=== PATIENT | male | born 1960 | race Caucasian/White ===

== ENCOUNTER 2018-05-11 16:25 | Emergency (ER) | payer OTHER, SELFPAY ==
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
[2018-05-11 16:37] VITALS: BP 178/70; PULSE 94; RESP 20; TEMP 36.4; O2SAT 97
[2018-05-11] MEDS: KETOROLAC 60 MG/2 ML VIAL IM (16:41)
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
--- NOTE | 2018-05-11 17:36 | PC.NURSE ---
Pt was incontinent of urine, this is new since the injury.
--- NOTE | 2018-05-11 17:42 | DI.RAD.S_ITS ---
PROCEDURE: XR CHEST 1V INDICATIONS: chest pain, left side TECHNIQUE: One view of the chest was acquired. COMPARISON: [facility], CR, XR CHEST 2 VIEWS, 04/13/2018, 7:57. FINDINGS: Surgical changes and devices: None. Lungs and pleura: Lungs are clear. No pleural effusions or pneumothorax. Mediastinum: Mediastinal contours appear normal. Heart size is normal. Bones and chest wall: No suspicious bony lesions. Overlying soft tissues appear unremarkable. IMPRESSION: No acute pulmonary process. Dictated by: Chastity Morales M.D. on 05/11/2018 at 18:19 Approved by: Chastity Morales M.D. on 05/11/2018 at 18:20
[2018-05-11] MEDS: diazePAM 5 MG TABLET PO (17:59)
[2018-05-11] MEDS: HYDROMORPHONE 1 MG INJ SUBCUT (19:33)
--- NOTE | 2018-05-11 19:39 | PC.NURSE ---
I agree with all assessments and treatments completed by the student nurse.
[2018-05-11 20:03] VITALS: BP 157/82; PULSE 86; RESP 18; O2SAT 96
== END 2018-05-11 20:05 | disposition home or self-care (01) ==
PROVIDERS: Emergency Provider Emergency Medicine; PCP Family Medicine
DX: S13.4XXA Sprain of ligaments of cervical spine, initial encounter (principal); V49.40XA Driver injured in collision with unspecified motor vehicles in traffic accident, initial encounter
CPT/HCPCS: 71045; 72125; 72131; 96372; 99282; 99284; J1170; J1885

== ENCOUNTER 2019-02-12 12:57 | Day surgery (SDC) | payer MEDICARE, SELFPAY ==
[2019-02-07 11:38] VITALS: BMI 46.5
[2019-02-12] VITALS (15 sets, daily range): BP systolic 133–183; BP diastolic 67–107; PULSE 69–99; RESP 14–20; TEMP 36–36.8; O2SAT 89–97; BMI 46.4
--- NOTE | 2019-02-12 | DI.RAD.S_ITS ---
PROCEDURE: XR CERVICAL SPINE 2V OR 3V INDICATIONS: C5-6 ACDF AND DISCECTOMY TECHNIQUE: 2 view(s) of the cervical spine were acquired. COMPARISON: None. FINDINGS: Bones: No fractures or dislocations to the T1 level. The lateral masses of C1 appear intact on the odontoid view. No suspicious bony lesions. Stable prior fusion plate C6-C7. No operative intervention C5-C6. Soft tissues: No prevertebral soft tissue swelling. IMPRESSION: Stable positioning of a anterior fusion plate from prior cervical fusion surgery C6-C7, a new small metallic structure is seen in the expected region of C5-6 on the frontal view postoperatively. Dictated by: Arsenio Sandoval M.D. on 02/13/2019 at 16:53 Approved by: Arsenio Sandoval M.D. on 02/13/2019 at 16:54
--- NOTE | 2019-02-12 15:20 | PM.PREOP ---
Pre-operative Note Interval Note History & Physical reviewed/Exam performed by Physician: Yes Changes to H&P: No
[2019-02-12] MEDS: LACTATED RINGERS 1,000 ML 42 ML IV (15:51)
[2019-02-12] MEDS: CEFAZOLIN 2 GM/100 ML FROZ.PIGGY IV (16:00)
[2019-02-12] MEDS: CEFAZOLIN 1 GM/50 ML FROZ.PIGGY IV (16:10)
--- NOTE | 2019-02-12 16:34 | SUR.OPER ---
Supine on padded OR bed, head on gel donut, towel between shoulder blades, arms padded and tucked at side, legs uncrossed, safety belt at thigh, tape over blanket over lower legs .
[2019-02-12] MEDS: THROMBIN (RECOMBINANT) 5,000 UNIT VIAL 5000 UNIT TOP (16:39)
[2019-02-12] MEDS: BUPIVACAINE 0.25% W/ EPI 30 ML VIAL INJ (16:40)
[2019-02-12] MEDS: SODIUM CHLORIDE 0.9% 1,000 ML, GENTAMICIN 80 MG IRR (16:40)
--- NOTE | 2019-02-12 17:27 | P.OP_ITS ---
Operative Date/Time/Diagnoses Date of procedure: 02/12/19 Time of procedure: 17:27 Pre-op diagnosis: Cervical disc herniation with radiculopathy History of cervical fusion Morbid obesity BMI 46 Post-op diagnosis: same Procedure & Clinicians Procedure: C5-6 anterior cervical diskectomy and fusion Use of cage Use of microscope Iliac crest bone graft aspirate Same procedure as scheduled: Yes Indications: [age] year old male with intractable pain from cervical radiculopathy from a disc herniation. They had failed conservative management and requested operative intervention. Risks and benefits of surgery were discussed and appropriate consents were obtained. Surgeon: Hany Angel Bacteriologist Pharmaceutical: Tierney Cruz Anesthesia Type: General Operative Notes Findings: None Closure Type: primary Specimen(s): none sent Prosthetic devices, grafts, tissues, transplants, or devices: Lilian SHELBY-C Estimated Blood Loss (mL): 5 Blood products transfused: none Procedure in detail: Patient was brought to the operating room and intubated on the table. A time-out was performed. Preoperative antibiotics were given. The neck was prepped and draped in the standard sterile fashion. Using his previous incision, we made a 3 cm oblique incision on the left side. We used Bovie to go through the platysma and then did a standard anterolateral blunt dissection down to the precervical fascia. This was quite difficult due to the previous scar tissue from his last surgery as well as the depth that we had approach through his very deep thick neck from his morbid obesity. Fascia was nicked and elevated up. We exposed the top of his C6-7 plate and used that as our localization for the next disc at C5-6 as we could barely visualize our levels on the lateral view due to his size. We then subperiosteally elevated up the longus colli muscles. Self-retaining retractors were placed. [place] pins were placed. We then brought in the microscope. A scalpel used to perform an annulotomy. We then used a combination of pituitaries and curettes and Kerrison to perform a complete anterior diskectomy at C5-6. We used the bur to take down the posterior osteophytes. We took down the PLL and used Kerrison to remove any posterior disc material and osteophytes. At the end we could from the nerve hook cephalad caudally and out the foramen and everything was opened. A small stab incision was made over the left anterior iliac crest. A Jamshidi needle was advanced down the pedicle and 2 mL of bone marrow was aspirated. We then used the trials. We then packed a 17 x 14 x7 mm SHELBY-C cage with Primagen bone graft and the iliac crest harvest. The cage was placed under fluoroscopic guidance. We then placed our two locking plates. The self- retaining retractors and [place] pins were removed and final x-rays taken. The wound was irrigated. There was no bleeding. The carotid was beating nicely. The platysma was closed. The superficial was closed. The skin was closed. A sterile dressing was placed. They were then extubated and brought to recovery room with no complications. Complications: none Post-operative Condition: stable Disposition: PACU Plan for aftercare: Inpatient overnight. Discharge in the morning.
[2019-02-12] MEDS: hydrOXYzine pamoate 25 MG CAPSULE PO (17:58)
[2019-02-12] MEDS: HYDROMORPHONE 2 MG INJ IV ×4 (17:59→18:17)
[2019-02-12] MEDS: ONDANSETRON 4 MG/2 ML INJ IV ×2 (18:03→22:24)
[2019-02-12] MEDS: LORazepam 2 MG/ML INJ 0.25 MG IV (18:15)
[2019-02-12] MEDS: LACTATED RINGERS 1,000 ML 125 ML IV (19:30)
--- NOTE | 2019-02-12 19:36 | PC.NURSE ---
Addendum entered by Vonnie Rob R.N. 02/12/19 23:37: Since last note patient is more awake, reporting pain to neck and back. Medicated with Dilaudid for pain. Complaining of not able to get comfortable in bed. Pt transferred to recliner, staff then changed out his bed to 's newer Purvi bed. Patient requesting to sit up in recliner for a while, shortly after that he fell asleep. Chair alarm placed, at his side. Patient woke saying feeling bad, belched a couple of times but had no emesis. We transferred back to bed, 2-3 max assist for safety as patient very pale & slow to mobilize. Refused for me to administer his 2100 medications saying he was nauseated, asking for food and seltzer. He also said he was having a difficult time swallowing & reports sore throat, reporting ice chips and sips of water helping. When he tried to eat yogurt, he said that he felt like small bits of fruit stuck in throat, but then not sure thinking maybe it was because his throat was sore. No drooling or cough. Patient in no distress. He is able to clear throat on his own, sipping on water intermittently. I gave Galilea NORTON RN report, she is aware of pt's reported swallowing problems, aware that he should not have anything but water tonight, until ST can see him in the morning. Original Note: Post-op note: Giovanny brought from PACU to 212 via hospital bed. Very drowsy, dozing intermittently. When wakes he startles, reaching out for bed rails, saying he is having a hard time breathing. Having periods of apnea, this nurse wondering if the apnea is waking him up. Respirations 12-14/minute, other VS stable. 2L O2 sat 92-98%, once dropped to 90% while dozing. Anterior middle left neck with gauze drsg covered by tegaderm, all CDI. Giovanny appears very anxious to me, giving him ice chips repeatedly, he intermittently tries to clear throat &/or cough and then moans in pain. I asked him to wait til more awake to take more ice chips at this time. still giving him ice chips, I stated a second time that we may want to pause with any oral intake at this point. very attentive to patient, interactive with care. IV to left wrist flushing with no difficulty, LR infusing at 125 ml/hour.
[2019-02-12] MEDS: DEXAMETHASONE 4 MG/ML VIAL IV (19:53)
[2019-02-12] MEDS: HYDROMORPHONE 0.5 MG INJ IV (20:00)
[2019-02-12] MEDS: OXYCODONE IR 5 MG TABLET 10 MG PO (22:17)
[2019-02-13] MEDS: HYDROMORPHONE 0.5 MG INJ IV (00:23)
[2019-02-13] MEDS: DEXAMETHASONE 4 MG/ML VIAL IV ×2 (00:28→06:03)
[2019-02-13] MEDS: CEFAZOLIN 2 GM/100 ML FROZ.PIGGY IV ×2 (00:29→09:11)
[2019-02-13] MEDS: INSULIN NPH 100 UNIT/ML VIAL 70 UNIT SUBCUT ×2 (00:37→09:15)
[2019-02-13] MEDS: INSULIN REGULAR 100 UNIT/ML 3 ML VIAL 50 UNIT SUBCUT ×2 (00:46→09:13)
[2019-02-13] MEDS: OXYCODONE IR 5 MG TABLET 10 MG PO ×3 (00:55→09:12)
[2019-02-13] MEDS: LACTATED RINGERS 1,000 ML 125 ML IV (04:06)
[2019-02-13 06:25] VITALS: BP 162/88; PULSE 87; RESP 16; TEMP 36.8; O2SAT 98
--- NOTE | 2019-02-13 06:41 | PC.NURSE ---
Patient was on 3 liters O2 at 97% at the start of shift from post op. In early AM patient was taken off O2, sat's are still 97% on Room air. Patient has had some pain control issues 10/27. Oxycodone 10mg given Q3. Dressing on neck is clean/dry/intact. Lung sounds are clear, VSS. Patient has expressed concerns about swallowing certain foods. He has continued to try different textures of foods with success. Patient is on Tele: NS. Patient was up to bedside this night w/o any complications. IS has been encouraged, SCD's are on. Bed is in low and locked position and call light is within reach.
--- NOTE | 2019-02-13 06:57 | PM.PNPO.1 ---
Subjective Subjective Date Patient Seen: 02/13/19 Time Patient Seen: 06:57 Interval history: He is doing well. Pain is 6/10, under control with medication. Arms feel fine, all lower neck pain. He has been eating yogurt and drinking without problems. He has been up and feels ready to go. Exam Vital Signs (past 8 hours): - 02/12/19 23:00 02/13/19 06:25 Temperature 98.2 F 98.3 F Pulse Rate 89 87 Respiratory Rate 18 16 Blood Pressure 167/99 H 162/88 H Pulse Oximetry 97 98 Oxygen Delivery Method Nasal Cannula Oxygen Flow Rate 2 Const Orientation: alert and oriented x3 Back/Spine/Pelvis Other: CDI. 5/5 motor both upper extremities. Assessment & Plan Post-op Postoperative Procedures: Procedures Operation Date: 02/12/19 15:15 Actual Procedures Side Surgeon p C56 anterior cervical discectomy & fusion Hany Angel MD he is doing well. Discharge home today.
[2019-02-13] MEDS: POTASSIUM CHLORIDE 10 MEQ TAB PO (09:11)
[2019-02-13] MEDS: METFORMIN HCL 500 MG TABLET 1000 MG PO (09:11)
[2019-02-13] MEDS: DOCUSATE 100 MG CAPSULE PO (09:11)
[2019-02-13] MEDS: CELECOXIB 200 MG CAPSULE PO (09:12)
[2019-02-13] MEDS: GABAPENTIN 600 MG TABLET 1200 MG PO (09:12)
[2019-02-13] MEDS: ATORVASTATIN 20 MG TABLET 80 MG PO (09:12)
[2019-02-13 09:13] VITALS: BP 151/85
[2019-02-13] MEDS: ASPIRIN 325 MG TABLET PO (09:13)
[2019-02-13] MEDS: FUROSEMIDE 40 MG TABLET PO (09:13)
[2019-02-13] MEDS: hydrOXYzine pamoate 25 MG CAPSULE PO (09:13)
[2019-02-13] MEDS: LOSARTAN 50 MG TABLET PO (09:13)
--- NOTE | 2019-02-13 10:12 | OT.IP.TRT ---
Current Diagnoses Morbid (severe) obesity due to excess calories (02/12/19) Other cervical disc displacement, unspecified cervical region (02/12/19) Sprain of ligaments of cervical spine, subsequent encounter (02/12/19) Arthrodesis status (02/12/19) Surgery Performed Operation Date: 02/12/19 15:15 Actual Procedures p C56 anterior cervical discectomy & fusion - Hany Angel MD Occupational Therapy Treatment Note M3 OT- IP Subjective and Pain Start: 02/13/19 10:10 Freq: Status: Active Protocol: Document 02/13/19 10:10 [facility] (Rec: 02/13/19 10:12 [facility] [id number]) OT- Subjective Occupational Therapy Visit Type Type Patient Refusal Notes Attempted OT eval with pt. Pt and states have been through this before and do not feel OT eval needed. Therefore discharge OT eval orders, pt going home today.
--- NOTE | 2019-02-13 11:13 | CM.IDA ---
Discharge Planning/Care Management Protocol: Document 02/13/19 11:01 [facility] (Rec: 02/13/19 11:13 [facility]FF[facility] [id number]) Discharge Planning Assessment Assigned Mail Processor DAVE Fay DPOA/Assigned Designee Name Raheem Rutherford, son and Drake Ramirez, partner Contact Information son: [phone] partner: Advance Directives? Yes History Provided By Patient Household Members significant other Type of transporation used prior to Drives own vehicle admit Independent with ADL's Yes Is patient alert and oriented? Yes Barriers to Discharge No Comment Pt POD#1 from surgery, DC order in place by Dr Angel. Pt has refused OT this morning, note indicates pt has gone through this before and feels confident returning home w/partner to assist as needed. No barriers identified to safe return home today as expected Discharge Plan Home Transportation Arrangement Partner Referrals Initiated None needed Review Status In Process
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
--- NOTE | 2019-02-13 13:15 | PC.NURSE ---
O2 RA=99%, ls clear, patient instructed to use IS/cough/deep breath; drsg to anterior and posterior neck c/d/i; c-collar in place; Student Nurse provided patient instructions, including f/u appt, RX medications, and s/sx of infection; present for instructions; patient escorted via wheelchair to personal vehicle
== END 2019-02-13 13:00 | disposition home or self-care (01) ==
LOC: OR 13:02 → AC 13:04
PROVIDERS: PCP Family Medicine; Visit Provider Orthopaedic Surgery
PROC: (CPT 22551; principal; 2019-02-12 15:15)
DX: M50.122 Cervical disc disorder at C5-C6 level with radiculopathy (principal); Z98.1 Arthrodesis status; E66.01 Morbid (severe) obesity due to excess calories; Z68.42 Body mass index [BMI] 45.0-49.9, adult; E11.9 Type 2 diabetes mellitus without complications; I25.10 Atherosclerotic heart disease of native coronary artery without angina pectoris; I11.0 Hypertensive heart disease with heart failure; I50.9 Heart failure, unspecified; V59.40XA Driver of pick-up truck or van injured in collision with unspecified motor vehicles in traffic accident, initial encounter; Z79.84 Long term (current) use of oral hypoglycemic drugs; S13.4XXA Sprain of ligaments of cervical spine, initial encounter
CPT/HCPCS: 22551; 22853; 20939; 72040; 76000; 82962; 94760; 97161; C1776; J0690; J1100; J1170; J2060; J2250; J2405; J2704; J3010